=== PATIENT | male | born 1960 | race Two or more races ===

== ENCOUNTER 2025-03-31 10:17 | Inpatient (IN) | payer OTHER ==
[~2025-03-31] VITALS: Ht 182.9 cm; Wt 204.0 kg
--- NOTE | 2025-03-31 10:25 | ELECTROCARDIOGRAPH REPORT ---
[facility] Test Date: 2025-03-31 Test Time: 10:23:16 Pat Name: LOS NICHOLS Department: EMERGENCY ROOM Patient ID: [facility]-[id number] Room: ORTHO 4020 Gender: M Customer Service Advisor: NILES : 1960 Requested By: BEA MIRAMONTES Order Number: [id number] Reading MD: Dr. Brayden Bailey Measurements Intervals [place] Rate: 93 P: -46 [place]: 186 QRS: 25 QRSD: 111 T: 52 QT: 375 QTc: 467 Interpretive Statements Sinus or ectopic atrial rhythm Atrial premature complex Baseline wander in lead(s) I,III,aVR,aVL,aVF,V3 Electronically Signed On 04-03-2025 18:36:[address] Brayden Bailey Please click the below link to view image of tracing.
--- NOTE | 2025-03-31 10:47 | Physician Documentation ---
History of Present Illness ~ Chief Complaint: Shortness of Breath Stated Complaint: ANGINA Time Seen by MD: 10:32 HPI 65-year-old male presenting with chest pain and shortness of breath that started about a week ago. He states that yesterday he got extremely bad and he had to go to the hospital. He presented to [facility] in [place]. Over there he was worked up and there was concern for an unstable angina so he was transferred to our hospital. Patient states that he has heaviness in his chest with pain that radiates to his left shoulder. The pain has been constant but will fluctuate in intensity. Currently he rates it as a 9/10. Additionally he states that he has been extremely short of breath and that his lower extremity swelling has been worsening over the past couple of weeks. Patient has a history of heart failure and is on medications for this. Denies any fever, chills, cough or any other associated symptoms. Medication Reconciliation Allergies: Coded Allergies: aspirin (Verified Adverse Reaction, Severe, PROJECTILE vomitting, 03/31/25) Review of Systems All Other Systems at this time: Reviewed and Negative Physical Exam Vital Signs: Temperature: 97.5, Source: Oral, Heart Rate: 89, Respiratory Rate: 13, BP: 134/91, Pulse Oximetry: 96, Weight: 204.000 Physical Exam I have reviewed the triage vitals. CONST: Well developed and well nourished. Uncomfortable appearing. Morbidly obese HENT: Head Atraumatic EYES: Pupils are equal, round and reactive to light. Normal conjunctiva NECK: Normal range of motion. Supple. CARDIO: Normal rate and regular rhythm. No murmurs, rubs, or gallops. S1, S2. PULM/CHEST: Mild respiratory distress. Lungs clear to auscultation. No wheeze ABD: Soft and nontender. Nondistended. Bowel sounds normal. No guarding. Obese : Exam deferred MSK: Severely edematous lower extremities with 4+ pitting edema bilaterally. Patient has chronic lymphedema. NEURO: Alert and oriented to person, place and time. Moving all extremities SKIN: Warm and dry. PSYCH: Normal mood and affect. Good eye contact. Progress Results/Orders Results/Orders Orders - BEA MIRAMONTES MD Chest,Single View (03/31/25 10:18) Monitor (03/31/25 10:18) Saline Lock (03/31/25 10:18) Oxygen (03/31/25 10:18) BMP (03/31/25 10:18) CK (03/31/25 10:42) CKMB (03/31/25 10:42) MG (03/31/25 10:42) CMP (03/31/25 10:42) PBNP (03/31/25 10:45) * Rt Notification Q1H (03/31/25 14:08) Page Hospitalist (03/31/25 14:09) Fill Out Med Reconciliation (03/31/25 14:09) Lipid Panel (03/31/25 10:54) Completed Orders - BEA MIRAMONTES MD Chest,Single View (03/31/25 10:18) Cbc/Diff (03/31/25 10:18) Electrocardiogram (03/31/25 10:18) Hs Troponin I W Calculations (03/31/25 10:18) Hs Troponin I W Calculations (03/31/25 12:18) Hs Troponin I W Calculations (03/31/25 13:18) Pt Inr (03/31/25 10:42) PTT (03/31/25 10:42) Urinalysis, Cult If Indicated (03/31/25 10:42) Morphine 10mg/Ml Inj. (Morphine Inj.) (03/31/25 10:45) Ondansetron Inj. (Zofran 4mg/2ml Vial) (03/31/25 10:45) Furosemide Inj (Lasix Inj) (03/31/25 10:45) Ceftriaxone/B4s-Fkutwhvk 1gm (Rocephin 1 (03/31/25 14:10) Methylprednisolone Sod Succ (Solumedrol (03/31/25 14:10) Albuterol 2.5mg/3ml Nebule (Proventil 2. (03/31/25 14:10) Medications Received in ER Medications (Trade) Dose Ordered Sig/J Carlos Route PRN Reason Start Time Stop Time Status Last Admin Dose Admin (morphine inj.) 10 mg ONCE ONCE IV 03/31/25 10:45 03/31/25 10:46 DC 03/31/25 11:19 10 MG (Zofran 4mg/2ml vial) 4 mg ONCE ONCE IV 03/31/25 10:45 03/31/25 10:46 DC 03/31/25 11:17 4 MG (Lasix inj) 40 mg ONCE ONCE IV 03/31/25 10:45 03/31/25 10:46 DC 03/31/25 11:17 40 MG Ceftriaxone Sodium 50 ml @ 100 mls/hr ONCE ONCE IV 03/31/25 14:10 03/31/25 14:39 DC 03/31/25 15:01 100 MLS/HR (SoluMEDROL 125mg inj) 125 mg ONCE ONCE IV 03/31/25 14:10 03/31/25 14:12 DC 03/31/25 15:01 125 MG Vital Signs 03/31/25 03/31/25 03/31/25 03/31/25 10:19 10:31 11:19 11:20 Temp 97.5 Pulse 86 85 Resp 16 13 12 13 B/P (MAP) 129/95 165/106 (125) Pulse Ox 98 96 03/31/25 03/31/25 12:15 13:57 Temp 97.5 Pulse 83 77 Resp 14 16 B/P (MAP) 162/89 (113) 110/63 (79) Pulse Ox 97 95 O2 Flow Rate 0 0 Laboratory Tests Test 03/31/25 10:54 03/31/25 12:22 03/31/25 12:32 03/31/25 13:13 White Blood Count 9.4 Red Blood Count 3.99 L Hemoglobin 11.4 L Hematocrit 34.0 L Mean Corpuscular Volume 85.0 Mean Corpuscular Hemoglobin 28.6 Mean Corpuscular Hemoglobin Concent 33.7 Red Cell Distribution Width 14.9 H Platelet Count 495 H Mean Platelet Volume 6.8 L Neutrophils (%) (Auto) 77.2 H Lymphocytes (%) (Auto) 12.0 L Monocytes (%) (Auto) 9.2 Eosinophils (%) (Auto) 0.8 Basophils (%) (Auto) 0.8 Neutrophils # (Auto) 7.2 Lymphocytes # (Auto) 1.1 Monocytes # (Auto) 0.9 Eosinophils # (Auto) 0.1 Basophils # (Auto) 0.1 CBC Comment Prothrombin Time 12.0 INR International Normalized Ratio 1.2 Activated Partial Thromboplast Time 36 H Coagulation Comments Sodium Level 134 L Potassium Level 4.2 Chloride Level 102 Carbon Dioxide Level 26.7 Anion Gap 5 L Blood Urea Nitrogen 11 Creatinine 1.05 Estimated GFR/1.73 m2 70 BUN/Creatinine Ratio 10.5 Glucose Level 115 H Calcium Level 9.2 Magnesium Level 1.9 Total Bilirubin 0.7 Aspartate Amino Transf (AST/SGOT) 15 Alanine Aminotransferase (ALT/SGPT) 29 Alkaline Phosphatase 79 Total Creatine Kinase 52 Troponin I High Sensitivity 6 5 5 Total Protein 7.2 Albumin 2.2 L Globulin 5.0 H Albumin/Globulin Ratio 0.4 L Chemistry Comments Troponin I High Sens Percent Delta 16 16 Troponin I Hi Sens Absolute Change -1 -1 Urine Specimen Description Cln catch midstream Urine Color Straw Urine Clarity Clear Urine pH 6.0 Urine Specific [place] <=1.005 Urine Protein Negative Urine Glucose (UA) Negative Urine Ketones Negative Urine Occult Blood Negative Urine Nitrite Negative Urine Bilirubin Negative Urine Urobilinogen 0.2 Urine Leukocyte Esterase Negative Urine Culture Indicated Not ind Volume Urine Centrifuged 10 ml Urine Comment EKG/XRAY/CT/US/VASC/MRI EKG : Additional Comment EKG as interpreted by myself indicates normal sinus rhythm with a rate of 93 beats per minute, slightly prolonged QTC, normal axis, no ischemia Chest X-Ray : Additional Comments CHEST RADIOGRAPH Indication: CP Technique: Single frontal view of the chest was obtained COMPARISON: None FINDINGS: Lines and Tubes: None Lungs: Bilateral lower lobe airspace disease. Pleura: No effusion. No pneumothorax. Cardiomediastinal contours: Unremarkable Bones: Unremarkable IMPRESSION: Bilateral lower lobe airspace disease. Medical Decision Making Additional Information 65-year-old male with a history of congestive heart failure presenting with a cute onset chest pain and shortness of breath that has been worsening over the past week. Imaging indicates cardiomegaly and some pulmonary edema as well as bilateral lower lobe opacities. Patient has significant lower extremity edema. His lab workup is grossly unremarkable with normal troponins. BNP is pending at this time. Patient has significant lower extremity swelling. He was medicated with 40 mg of IV furosemide. He was also, given his history of asthma, given an albuterol breathing treatment as well as Solu-Medrol 125 mg. He was also empirically covered for potential pneumonia with 1 g of IV ceftriaxone. Patient has been suffering from unstable angina and given his complicated past medical history we will need admission for further treatment and evaluation. Report called to admitting hospitalist team. Departure Disposition: 09 ADMITTED INPATIENT Admission Level of Care: PCU with Tele Impression: Primary Impression: Acute on chronic systolic heart failure Additional Impressions: Asthma Chest pain Unstable angina Referrals: NO PRIMARY CARE PROVIDER (PCP) Signature Scribe Signature: 1 Attestation: 1 BEA MIRAMONTES MD Mar 31, 2025 10:47
[2025-03-31 11:04] LABS: BASOPHILS # (AUTO) 0.1 X10'3 (0-0.2); BASOPHILS % (AUTO) 0.8 % (0-1); EOSINOPHILS # (AUTO) 0.1 X10'3 (0-0.9); EOSINOPHILS % (AUTO) 0.8 % (0-6); HEMOGLOBIN 11.4 g/dl (14.0-17.9); LYMPHOCYTES # (AUTO) 1.1 X10'3 (1.1-4.8); MEAN CORPUSCULAR HEMOGLOBIN 28.6 PG (27.0-31.0); MEAN CORPUSCULAR HGB CONC 33.7 g/dL (33.0-36.5); MEAN PLATELET VOLUME 6.8 FL (7.4-10.4); MONOCYTES # (AUTO) 0.9 X10'3 (0-0.9); MONOCYTES % (AUTO) 9.2 % (2-12); NEUTROPHILS # (AUTO) 7.2 X10'3 (1.8-7.7); NEUTROPHILS % (AUTO) 77.2 % (42-75); PLATELET COUNT 495 X10'3 (140-440); RED BLOOD COUNT 3.99 X10'6 (4.70-6.10); RED CELL DISTRIBUTION WIDTH 14.9 % (11.5-14.5); WHITE BLOOD COUNT 9.4 X10'3 (4.5-11.0)
[2025-03-31] MEDS: furosemide 10 MG/1 ML 10ml inj IV ONE (11:17)
[2025-03-31] MEDS: ondansetron/PF 4mg/2ml inj IV ONE (11:17)
[2025-03-31 11:19] LABS: APTT 36 SECONDS (22-32); INR 1.2 INR
[2025-03-31] MEDS: morphine 10mg/ml inj. IV ONE (11:19)
[2025-03-31 11:53] LABS: ALANINE AMINOTRANSFERASE 29 U/L (12-78); ALBUMIN 2.2 G/DL (3.4-5.0); ALBUMIN/GLOBULIN RATIO 0.4 (1.1-1.5); ALKALINE PHOSPHATASE 79 IU/L (46-116); ANION GAP 5 (8-16); ASPARTATE AMINO TRANSFERASE 15 U/L (10-37); BILIRUBIN,TOTAL 0.7 MG/DL (0.1-1.0); BLOOD UREA NITROGEN 11 MG/DL (7-18); BUN/CREATININE RATIO 10.5 (10.0-20.0); CALCIUM 9.2 MG/DL (8.5-10.1); CHLORIDE 102 MMOL/L (99-107); CREATININE 1.05 MG/DL (0.60-1.10); GLUCOSE 115 MG/DL (70-104); POTASSIUM 4.2 MMOL/L (3.5-5.1); SODIUM 134 MMOL/L (135-145); TOTAL CARBON DIOXIDE 26.7 MMOL/L (24-32); TOTAL PROTEIN 7.2 G/DL (6.4-8.2); eCRCL 75 ML/MIN; eGFR 70 ML/MIN
[2025-03-31 11:59] LABS: ALBUMIN 2.2 G/DL (3.4-5.0); ANION GAP 3 (8-16); BLOOD UREA NITROGEN 11 MG/DL (7-18); BUN/CREATININE RATIO 10.5 (10.0-20.0); CALCIUM 9.2 MG/DL (8.5-10.1); CHLORIDE 102 MMOL/L (99-107); CREATININE 1.05 MG/DL (0.60-1.10); GLUCOSE 114 MG/DL (70-104); POTASSIUM 4.2 MMOL/L (3.5-5.1); SODIUM 134 MMOL/L (135-145); TOTAL CARBON DIOXIDE 28.9 MMOL/L (24-32); eCRCL 75 ML/MIN; eGFR 70 ML/MIN
[2025-03-31 12:04] LABS: CREATINE KINASE 52 U/L (39-308); MAGNESIUM 1.9 MG/DL (1.5-2.4)
[2025-03-31 12:40] LABS: BILIRUBIN,URINE NEGATIVE (Neg); CLARITY,URINE CLEAR (Clear); COLOR,URINE STRAW (Yellow); GLUCOSE, URINE NEGATIVE (Neg); KETONES,URINE NEGATIVE (Neg); LEUKOCYTE ESTERASE ,URINE NEGATIVE (Neg); NITRITES, URINE NEGATIVE (Neg); OCCULT BLOOD,URINE NEGATIVE (Neg); PROTEIN,URINE NEGATIVE (Neg); UROBILINOGEN,URINE 0.2 E.U/dL (0.2-1.0)
[2025-03-31 12:49] LABS: UA COLLECTION TYPE CLN CATCH MIDSTREAM
[2025-03-31] MEDS ORDERED: potassium Cl 40MEQ/1/2NS 520ml 520 ML IV PRN (14:50)
[2025-03-31] MEDS ORDERED: mag hydrox/Alum hydrox/simeth 30ml oral suspension PO PRN (14:50)
[2025-03-31] MEDS ORDERED: metoprolol tartrate 1mg/ml inj IV PRN (14:50)
[2025-03-31] MEDS ORDERED: nitroGLYCERIN 0.4mg SUBLingual tab SL PRN ×2 (14:50→14:55)
[2025-03-31] MEDS ORDERED: acetaminophen 325mg tablet PO PRN (14:50)
[2025-03-31] MEDS ORDERED: regadenoson 0.4mg/5ml syringe IV PRN (14:50)
[2025-03-31] MEDS ORDERED: magnesium sulf-water 4G/100mL 100 ML IV PRN (14:50)
[2025-03-31] MEDS ORDERED: ondansetron 4mg rapidly disintigrating tab PO PRN (14:50)
[2025-03-31] MEDS ORDERED: magnesium hydroxide 30ml (MOM) UD suspension PO PRN (14:50)
[2025-03-31] MEDS ORDERED: magnesium sulf-water 2g/50mL 50 ML IV PRN (14:50)
[2025-03-31] MEDS ORDERED: aminophylline 500mg/20ml vial IV PRN (14:50)
[2025-03-31] MEDS ORDERED: potassium Cl 20 mEq SR tablet PO PRN ×2 (14:50)
[2025-03-31] MEDS ORDERED: ondansetron/PF 4mg/2ml inj IV PRN (14:50)
[2025-03-31] MEDS: PERFLUTREN PROTEIN-A MICROSPHR (Optison) 0.22 MG/ML 3ML VIAL IV ONE (14:55)
[2025-03-31] MEDS ORDERED: hydrALAZINE 20mg/ml inj. IV PRN (15:00)
[2025-03-31] MEDS ORDERED: albuterol 2.5 MG/3 ML nebule NEB PRN (15:00)
[2025-03-31] MEDS: CefTRIAXone/D5W-Rocephin 1gm 50 ML IV ONE (15:01)
[2025-03-31] MEDS: methylPREDNISolone sod succ 125mg/2ml vial IV ONE (15:01)
[2025-03-31] MEDS: aspirin 81mg, enteric-coated 1 TAB TABLET.DR PO ONE (15:33)
--- NOTE | 2025-03-31 16:29 | HISTORY AND PHYSICAL ---
History & Physical Providers to CC ~ History of Present Illness Reason for Admit\Complaint: r/o ACS History of Present Illness Titus Barakat 65-year-old male with a past medical history of left renal carcinoma s/p left nephrectomy, CHF, PE, right lower extremity DVT who was transferred from [facility] for management of unstable angina. Patient reports progressively worsening chest pain that radiates to his left shoulder, shortness of breath with associated symptoms of bilateral lower extremity swelling x 2 week. Patient denies prior CVA, seizures, cardiac arrhythmia, or GIB. Patient denies loss of consciousness, palpitations, abdominal pain, n/v/d, fever, chills. Reportedly, patient had stress test done one week ago at OR which came back positive. Patient is to be admitted on telemetry for further workups and treatment. Allergies: Coded Allergies: aspirin (Verified Adverse Reaction, Severe, PROJECTILE vomitting, 03/31/25) Past Medical History Past Medical History Left renal carcinoma Congestive heart failure Pulmonary embolism DVT Hypertension Class III obesity Past Surgical History Surgical History Comment Left nephrectomy Appendectomy Right TKA Past Social History Social History Comment Alcohol: Occasionally Tobacco: Denies Illicit drug use: Marijuana occasionally Living situation: Lives at home alone ROS ROS Other than positives in HPI, all 14 review of systems are negative Exam Vitals: Vital Signs Date Time Temp Pulse Resp B/P (MAP) Pulse Ox O2 Delivery O2 Flow Rate FiO2 03/31/25 13:57 77 16 110/63 (79) 95 0 03/31/25 12:15 97.5 General: A&Ox 3, NAD, morbidly obese HEENT: Normocephalic, PERRLA Neck: Supple, trachea midline, no JVD Chest: Clear to auscultation bilaterally Cardiovascular: RRR, S1&S2 Abdomen: Soft and nontender Extremities: +2 b/l lower extremity edema Central Nervous System: CN II-XII intact, no focal deficits Musculoskeletal: No paraspinal muscle tenderness, no muscle spasm Skin: Warm and intact Diagnostic Data Last Recorded Lab Results: 03/31/25 1054 03/31/25 1054 Diagnostic Data: Laboratory Tests Test 03/31/25 10:54 Prothrombin Time 12.0 SECONDS (9.0-12.0) INR International Normalized Ratio 1.2 INR Activated Partial Thromboplast Time 36 SECONDS (22-32) H Coagulation Comments Additional Plan Assessment ACS- to rule out HTN Hyponatremia, mild Normocytic anemia Hx left renal carcinoma s/p left nephrectomy Acute decompensated heart failure- TTE to follow Class III obesity -trop series negative, CTA chest Fortine negative, CXR no acute findings Plan -request MR including [facility] -aspirin on hold due to reported adverse reaction, metoprolol, statin, nitroglycerin -follow pBNP, EKG, TTE, Lexiscan if request of MR fails DVT/VTE prophylaxis: heparin Code status: Full code Disposition: Admit on tele I spent a total of 35 minutes discussing Advanced Care Planning measures with the patient. Advance care planning: Discussed with patient the importance of advance care planning in case of emergent situation. We discussed various resuscitative measures/ ACP with the patient at the time of admission. Patient voiced understanding and patient has decided on a full code status Date of Service: Mar 31, 2025 Billing Provider: TATE MELARA Common Visit Codes: [id number] INP/OBS CARE (HIGH) Secondary Visit Codes: [id number] CARE PLAN 30 MINUTES TATE MELARA Mar 31, 2025 16:28
[2025-03-31 16:30] VITALS: PULSE 81; RESP 16; O2SAT 95
[2025-03-31] MEDS: albuterol 2.5 MG/3 ML nebule NEB ONE (16:30)
[2025-03-31 16:35] VITALS: PULSE 84; RESP 15
[2025-03-31 16:40] LABS: CHOL/HDL RATIO 3.2 (0.00-4.99); CHOLESTEROL 145 MG/DL (0-200); HDL CHOLESTEROL 46 MG/DL (35-60); LDL CHOLESTEROL 80 MG/DL (50-100); TRIGLYCERIDES 46 MG/DL (20-135)
[2025-03-31 16:43] LABS: CREATINE KINASE MB 0.5 ng/ml (0.3-3.6)
[2025-03-31] MEDS: heparin, porcine 5000 units/ml vial SQ SCH (17:17)
[2025-03-31] MEDS: oxyCODONE IR 5mg (immed. release) tablet PO ONE (17:18)
[2025-03-31] MEDS: metoprolol succinate 25mg (24-HOUR) SR. Tablet PO ONE (17:18)
[2025-03-31 19:25] VITALS: PULSE 84; RESP 18; O2SAT 95
[2025-03-31] MEDS: K and/or MAG REPLACEMENT MC SCH (20:00)
[2025-03-31] MEDS: docusate sod 100mg capsule PO SCH (20:28)
[2025-03-31] MEDS: atorvastatin 20mg tablet PO SCH (21:00)
[2025-03-31 22:00] VITALS: BP 138/72; PULSE 88; RESP 18; TEMP 98.3; O2SAT 96
[2025-03-31] MEDS: ipratropium/albuterol 3ml nebule NEB PRN (23:45)
[2025-03-31 23:46] VITALS: PULSE 83; RESP 16; O2SAT 91
[2025-04-01] MEDS: oxyCODONE IR 5mg (immed. release) tablet PO ONE (00:08)
[2025-04-01 01:03] VITALS: O2SAT 96
[2025-04-01 01:05] VITALS: RESP 18; O2SAT 96
[2025-04-01 05:28] LABS: BASOPHILS # (AUTO) 0.1 X10'3 (0-0.2); BASOPHILS % (AUTO) 0.8 % (0-1); EOSINOPHILS % (AUTO) 0 % (0-6); HEMATOCRIT 35.5 % (42.0-52.0); HEMOGLOBIN 11.7 g/dl (14.0-17.9); LYMPHOCYTES # (AUTO) 0.6 X10'3 (1.1-4.8); LYMPHOCYTES % (AUTO) 6.6 % (21-51); MEAN CORPUSCULAR HEMOGLOBIN 28.2 PG (27.0-31.0); MEAN CORPUSCULAR VOLUME 85.4 FL (78-98); MEAN PLATELET VOLUME 7.6 FL (7.4-10.4); MONOCYTES # (AUTO) 0.2 X10'3 (0-0.9); NEUTROPHILS # (AUTO) 7.8 X10'3 (1.8-7.7); NEUTROPHILS % (AUTO) 90.6 % (42-75); PLATELET COUNT 558 X10'3 (140-440); RED BLOOD COUNT 4.15 X10'6 (4.70-6.10); WHITE BLOOD COUNT 8.6 X10'3 (4.5-11.0)
[2025-04-01 06:00] VITALS: BP 121/76; PULSE 82; RESP 14; TEMP 98.1; O2SAT 95
[2025-04-01 06:06] LABS: ALANINE AMINOTRANSFERASE 25 U/L (12-78); ALBUMIN 2.2 G/DL (3.4-5.0); ALBUMIN/GLOBULIN RATIO 0.4 (1.1-1.5); ALKALINE PHOSPHATASE 77 IU/L (46-116); ANION GAP 7 (8-16); ASPARTATE AMINO TRANSFERASE 15 U/L (10-37); BILIRUBIN,TOTAL 0.5 MG/DL (0.1-1.0); BLOOD UREA NITROGEN 16 MG/DL (7-18); BUN/CREATININE RATIO 13.2 (10.0-20.0); CALCIUM 9.5 MG/DL (8.5-10.1); CHLORIDE 101 MMOL/L (99-107); CREATININE 1.21 MG/DL (0.60-1.10); GLUCOSE 170 MG/DL (70-104); MAGNESIUM 2.3 MG/DL (1.5-2.4); POTASSIUM 4.6 MMOL/L (3.5-5.1); SODIUM 135 MMOL/L (135-145); TOTAL CARBON DIOXIDE 27.4 MMOL/L (24-32); TOTAL PROTEIN 7.5 G/DL (6.4-8.2); eCRCL 65 ML/MIN; eGFR 60 ML/MIN
[2025-04-01] MEDS: aspirin 81mg, enteric-coated 1 TAB TABLET.DR PO SCH (07:40)
[2025-04-01] MEDS: metoprolol succinate 25mg (24-HOUR) SR. Tablet PO SCH (07:59)
[2025-04-01 08:09] VITALS: PULSE 80; RESP 16; O2SAT 96
[2025-04-01] MEDS ORDERED: normal saline 1000ml 1,000 ML IV SCH (08:10)
[2025-04-01] MEDS ORDERED: HYDROcodone/acetaminophen 10/325mg tab PO PRN (08:15)
[2025-04-01] MEDS ORDERED: HYDROcodone/acetaminophen 5mg/325mg tablet PO PRN (08:15)
[2025-04-01 08:16] VITALS: PULSE 67; RESP 18
[2025-04-01] MEDS ORDERED: ALFU10TA47 PO (08:48)
[2025-04-01] MEDS ORDERED: ASCO125T PO (08:50)
[2025-04-01] MEDS ORDERED: FLUT1BLS13 INH (08:51)
[2025-04-01] MEDS ORDERED: AMLO-139 PO (08:53)
[2025-04-01] MEDS ORDERED: OXYC-658 PO (08:54)
[2025-04-01] MEDS ORDERED: oxyCODONE IR 5mg (immed. release) tablet PO PRN ×2 (10:10→11:30)
[2025-04-01] MEDS: oxyCODONE IR 5mg (immed. release) tablet PO PRN (11:57)
[2025-04-01] MEDS ORDERED: HYDROmorphone/PF 0.2 MG/ML SYRINGE IV ONE (13:25)
[2025-04-01 13:42] VITALS: RESP 15
[2025-04-01] MEDS: HYDROmorphone/PF 0.2 MG/ML SYRINGE IV ONE (13:42)
--- NOTE | 2025-04-01 15:37 | CARDIOLOGY REPORT ---
APPROVED REPORT EXAM: Comprehensive 2D, Doppler, and color-flow Echocardiogram. Patient Location: ER3 Blood Pressure: 148 / 74 mmHg Heart Rate: 80-90'S bpm Rhythm: SINUS Indications CONGESTIVE HEART FAILURE Donor Specialist: NONE Previous echo: NONE 2D Dimensions RVDd 5.3 cm IVSd 1.1 (0.7-1.1cm) LVDd 5.2 cm PWd 1.1 (0.7-1.1cm) LVOT Diameter 2.90 (1.8-2.4cm) Ao Asc Diam.4.11 cm M-Mode Dimensions Left Atrium(MM) 6.49 (2.5-4.0cm) Aortic Root 4.83 (2.2-3.7cm) Aortic Cusp Exc 2.62 (1.5-2.0cm) Aortic Valve AoV Peak Иван. 143.9 cm/s AoV VTI 29.1 cm AO Peak GR. 8.3 mmHg AO Mean GR. 5 mmHg LVOT VTI 23.13 cm LVOT Peak Иван. 117.5 cm/s RAZA(VTI)/BSA 5.00 cm2/m2 RAZA (VTI) 5.10 cm2 Mitral Valve MV E Velocity 105.8 cm/s MV Peak Gr. 5 mmHg MV DECEL TIME 268 ms MV A Velocity 84.2 cm/s MV PHT 64 ms E/A Ratio 1.3 MVA (PHT) 3.44 cm2 MV [id number] cm/s LEFT VENTRICLE Normal LV size and wall thickness. Overall systolic function is normal. Overall LVEF is 60%. RIGHT VENTRICLE RV is significantly increased in size with adequate function. ATRIA Left atrium is severely dilated. AORTIC VALVE Trileaflet AV appears ?mildly sclerotic (TDS) without stenosis or insufficiency. MITRAL VALVE ?Mild MV annular calcification without stenosis. Mild regurgitation. TRICUSPID VALVE TV appears structurally normal with trace regurgitation. Tricuspid valve is not well visualized. PULMONIC VALVE Grossly normal PV without stenosis, physiologic insufficiency. Pulmonic valve is not well visualized. GREAT VESSELS Aortic root is moderately dilated. Ascending aorta is dilated. PERICARDIUM Normal pericardium. No effusion. Other Information Study Quality: Technically Difficult due to habitus, respiratory status, limited positioning. Conclusion Overall LVEF is 60%. Normal LV size and wall thickness. Overall systolic function is normal. RV is significantly increased in size with adequate function. Trileaflet AV appears ?mildly sclerotic (TDS) without stenosis or insufficiency. ?Mild MV annular calcification without stenosis. Mild regurgitation. TV appears structurally normal with trace regurgitation. Tricuspid valve is not well visualized. Grossly normal PV without stenosis, physiologic insufficiency. Pulmonic valve is not well visualized . Normal pericardium. No effusion.
--- NOTE | 2025-04-01 16:47 | PROGRESS NOTE ---
Daily Progress Note Providers to CC ~ Objective Vital Signs Date Time Temp Pulse Resp B/P (MAP) Pulse Ox O2 Delivery O2 Flow Rate FiO2 04/01/25 13:42 15 04/01/25 08:16 67 Room Air 0.0 04/01/25 08:09 96 21 04/01/25 06:00 98.1 121/76 (91) Result Diagram: 04/01/25 0437 04/01/25 0437 Coagulation Studies Laboratory Tests Test 03/31/25 10:54 Prothrombin Time 12.0 SECONDS (9.0-12.0) INR International Normalized Ratio 1.2 INR Activated Partial Thromboplast Time 36 SECONDS (22-32) H Coagulation Comments TATE MELARA PICCOLOIST Apr 01, 2025 16:47
--- NOTE | 2025-04-01 18:16 | DISCHARGE SUMMARY ---
Discharge Summary Providers to CC ~ Discharge Summary Admission Diagnosis: r/o ACS Hospital Course DATE OF ADMISSION: 03/31/25 DATE OF DISCHARGE: 04/01/25 Discharge Diagnosis\Comment: ACS- cannot exclude HTN Hyponatremia, mild Normocytic anemia Hx left renal carcinoma s/p left nephrectomy Acute decompensated diastolic heart failure Class III obesity Operations\Procedures: None Consultants: None Complications: Left AMA Condition on DC: Unstable Discharge Summary: Patient examined at bedside in the morning. Patient rests and sleeps well without back pain but specifically requesting for Dilaudid prior to getting Lexiscan done. Lexiscan not performed due to patient refusing due to lower back pain despite receiving Dilaudid. Patient proceeds to request for more Dilaudid. Patient refuses workups to be done then again rests and sleeps well without signs of pain. Patient is not medically cleared for discharge. However, patient left AMA despite explaining risks associated with leaving AMA. Physical Exam General: Generalized weakness, A&Ox 3, NAD, morbidly obese HEENT: Normocephalic, PERRLA Neck: Supple, trachea midline, no JVD Chest: Clear to auscultation bilaterally Cardiovascular: RRR, S1&S2 Abdomen: Soft and nontender Extremities: No cyanosis/clubbing/or edema Central Nervous System: CN II-XII intact, no focal deficits Musculoskeletal: No paraspinal muscle tenderness, no muscle spasm Skin: Warm and intact *Problems/Diagnosis: (1) Unstable angina Status: Acute Total Time Spent on D/C: > 30 Minutes Date of Service: Apr 01, 2025 Billing Provider: TATE MELARA Common Visit Codes: 65094-FCU/OBS DISCH DAY >30min TATE MELARA Apr 01, 2025 18:16
--- NOTE | 2025-04-03 17:00 | RADIOLOGY REPORT ---
Reason for study/Clinical History: unstable angina Comparison Study: None Myocardial Perfusion Study with SPECT Technique: The patient received an intravenous injection of 8.9 mCi of technetium-99m Sestamibi whi le at rest. After a short delay, SPECT tomographic images of the heart were obtained. The patient tim ricks went to the stress lab where they received an intravenous Lexiscan utilizing standard protocol. mCi of technetium-99m Sestamibi was injected intravenously immediately after the start of the infu tiara. Gated SPECT tomographic images of the heart were acquired and processed. Findings/ IMPRESSION: Patient was able to tolerate exam. Not enough images for able to be obtained for interpretation.
== END 2025-04-01 19:55 | disposition left against medical advice (07) | DRG 291 ==
LOC: ER 10:17 → ED HOLD 14:54 → ORTHO 4S 21:57
PROVIDERS: ADMIT Nurse Practitioner Family; ATTEND Nurse Practitioner Family
DX: I11.0 Hypertensive heart disease with heart failure (principal); I50.43 Acute on chronic combined systolic (congestive) and diastolic (congestive) heart failure; E87.1 Hypo-osmolality and hyponatremia; Z68.44 Body mass index [BMI] 60.0-69.9, adult; I20.0 Unstable angina; Z53.21 Procedure and treatment not carried out due to patient leaving prior to being seen by health care provider; E66.813 Obesity, class 3; J45.909 Unspecified asthma, uncomplicated; D64.9 Anemia, unspecified; Z96.651 Presence of right artificial knee joint; Z85.528 Personal history of other malignant neoplasm of kidney; Z88.6 Allergy status to analgesic agent; Z90.5 Acquired absence of kidney; Z86.718 Personal history of other venous thrombosis and embolism; Z86.711 Personal history of pulmonary embolism
CPT/HCPCS: 36415; 71045; 80048; 80053; 80061; 81003; 82550; 82553; 83036; 83735; 83880; 84484; 85025; 85610; 85730; 87081; 93005; 93306; 94640; 94760; 96365; 96375; 99285; A4615; A9500; G0378; J0696; J1171; J1644; J1938; J2274; J2405; J2919; J7030